=== PATIENT | female | born 1985 | race Asian ===

== ENCOUNTER 2019-07-09 10:33 | Emergency (ER) | payer OTHER ==
[~2019-07-09] VITALS: Ht 157.5 cm; Wt 96.9 kg
[2019-07-09 10:41] VITALS: BP 145/94
== END 2019-07-09 14:00 | disposition home or self-care (01) ==
LOC: ED 13:59
DX: O23.10 Infections of bladder in pregnancy, unspecified trimester (principal); Z3A.01 Less than 8 weeks gestation of pregnancy
CPT/HCPCS: 36415; 76801; 80048; 81001; 82040; 84702; 85025; 87086; 99284

== ENCOUNTER 2019-07-10 10:58 | Emergency (ER) | payer OTHER ==
[~2019-07-10] VITALS: Ht 157.5 cm; Wt 96.7 kg
[2019-07-10 11:30] VITALS: BP 147/92
== END 2019-07-10 15:11 | disposition left against medical advice (07) ==
LOC: ED 15:05
DX: O26.891 Other specified pregnancy related conditions, first trimester (principal); R10.9 Unspecified abdominal pain; Z3A.01 Less than 8 weeks gestation of pregnancy
CPT/HCPCS: 36415; 80053; 84702; 85025; 99283

== ENCOUNTER 2019-12-16 23:20 | Emergency (ER) | payer OTHER ==
[~2019-12-16] VITALS: Ht 157.5 cm; Wt 100.0 kg
[~2019-12-16 23:20] MED LIST: IBUP200T49 PO
--- NOTE | 2019-12-16 23:25 | NUR ---
This rn informed [facility] of pt arrival, via [facility]. 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
--- NOTE | 2019-12-16 23:36 | NUR ---
Patient BIB [facility] c/o difficulty breathing and palpations which started approx 1 hr ago; it woke her from sleep. Patient is approx 28 weeks with her due date being 03/08/2020. Patient denies CP. C/o epigastric pain but thinks it is related to her cough she's had for one month. She has had more edema than usual in her extremities with discomfort. Respirations even but patient appears SOB.
[2019-12-17 00:10] LABS: BASOPHILS # (AUTO) 0.02 x10^3/uL (0-0.1); BASOPHILS % (AUTO) 0 % (0-1); EOSINOPHILS # (AUTO) 0.07 x10^3/uL (0-0.4); EOSINOPHILS % (AUTO) 1 % (1-7); LYMPHOCYTES # (AUTO) 1.49 x10^3/uL (1-3.4); LYMPHOCYTES % (AUTO) 13 % (22-44); MD NO; MEAN CORPUSCULAR HEMOGLOBIN 29.5 pg (27.0-34.8); MEAN CORPUSCULAR HGB CONC 33.7 g/dL (32.4-35.8); MEAN CORPUSCULAR VOLUME 87.7 fL (80-100); MEAN PLATELET VOLUME 8.9 fL (7.4-10.4); MONOCYTES # (AUTO) 0.97 x10^3/uL (0.2-0.8); MONOCYTES % (AUTO) 8 % (2-9); NEUTROPHILS # (AUTO) 9.05 x10^3/uL (1.8-6.8); NEUTROPHILS % (AUTO) 78 % (42-75); PLATELET COUNT 226 x10^3/uL (130-400); RED BLOOD COUNT 4.22 x10^6/uL (3.82-5.3); RED CELL DISTRIBUTION WIDTH 14.3 % (9.6-15.2)
[2019-12-17 00:16] LABS: INTERNATIONAL NORMALIZED RATIO 0.9 (0.93-1.1); PROTHROMBIN TIME 9.5 Seconds (9.6-11.5)
[2019-12-17 00:18] LABS: ALANINE AMINOTRANSFERASE 17 U/L (12-78); ALBUMIN 2.5 g/dL (3.4-5.0); ANION GAP 6 mmol/L (5-15); CALCIUM 8.1 mg/dL (8.5-10.1); CHLORIDE 112 mmol/L (98-107); CREATININE 0.67 mg/dL (0.55-1.02)
[2019-12-17 00:20] LABS: ALKALINE PHOSPHATASE 94 U/L (45-117); BILIRUBIN,TOTAL 0.1 mg/dL (0.2-1.0); TOTAL PROTEIN 6.6 g/dL (6.4-8.2)
[2019-12-17 00:30] LABS: MICROSCOPIC AUTO
[2019-12-17 00:32] LABS: CULTURE INDICATED? YES
--- NOTE | 2019-12-17 01:23 | NUR ---
Pt amb to rr w/ pulse ox applied via erp order. PT states mild sob and hr to 120-130's during ambulation. SpO2 still 97-99%. Md notified. At bedside to update pt on poc.
[2019-12-17] MEDS ORDERED: OMNIPAQUE 350 MG/ML, 100ML BOTTLE ONE (02:40)
[2019-12-17 03:19] VITALS: BP 130/81
--- NOTE | 2019-12-17 03:42 | NUR ---
Patient discharge instructions given. All questions and concerns addressed. Patient ambulatory with a steady gait. Belongings with patient.
== END 2019-12-17 03:44 | disposition home or self-care (01) ==
LOC: ED 12-17 00:58
DX: O99.512 Diseases of the respiratory system complicating pregnancy, second trimester (principal); R00.0 Tachycardia, unspecified; R06.00 Dyspnea, unspecified; Z3A.00 Weeks of gestation of pregnancy not specified
CPT/HCPCS: 36415; 71275; 80053; 81001; 83880; 85025; 85610; 85730; 87086; 93005; 93970; 99284; Q9967